=== PATIENT | male | born 1945 | race Caucasian/White ===

== ENCOUNTER 2022-01-01 10:16 | Outpatient (RCR) | payer MEDICARE, SELFPAY | END 2022-01-09 12:25 | disposition home or self-care (01) | LOC: HO.WCC 10:16 | PROVIDERS: PCP Physician Assistant; Referring Provider Podiatrist Foot & Ankle Surgery; Visit Provider Physician Assistant | DX: S51.012D Laceration without foreign body of left elbow, subsequent encounter (principal); E11.40 Type 2 diabetes mellitus with diabetic neuropathy, unspecified; E11.65 Type 2 diabetes mellitus with hyperglycemia; I87.2 Venous insufficiency (chronic) (peripheral); I10 Essential (primary) hypertension; F17.210 Nicotine dependence, cigarettes, uncomplicated; Z86.73 Personal history of transient ischemic attack (TIA), and cerebral infarction without residual deficits | CPT/HCPCS: 99212 ==